=== PATIENT | female | born 1980 | race Caucasian/White ===

== ENCOUNTER 2018-12-22 15:53 | Emergency (ER) | payer OTHER, MEDICAID ==
[~2018-12-22] VITALS: Ht 157.5 cm; Wt 68.0 kg
[2018-12-22] MEDS ORDERED: KETOROLAC 30MG/ML VIAL IV STA (22:12)
[2018-12-22] MEDS ORDERED: ONDANSETRON HCL 4MG/2ML INJ IV STA (22:12)
[2018-12-22] MEDS ORDERED: DIAZEPAM 5 MG TABLET PO ONE (22:30)
[2018-12-22 22:38] LABS: CLARITY URINE CLEAR (CLEAR); COLOR URINE YELLOW (YELLOW); KETONES URINE NEGATIVE (NEGATIVE); LEUKOCYTE ESTERASE URINE TRACE (NEGATIVE); NITRITE URINE NEGATIVE (NEGATIVE); OCCULT BLOOD URINE NEGATIVE (NEGATIVE); PH URINE 5.5 (4.5-8.0); PROTEIN URINE NEGATIVE (NEGATIVE); SPECIFIC GRAVITY URINE 1.017 (1.005-1.030); UROBILINOGEN URINE 0.2 E.U./dL (0.2-1.0)
[2018-12-22 22:41] LABS: BASOPHILS % 0.7 % (0.0-2.0); EOSINOPHILS % 1.5 % (0.0-5.0); HEMATOCRIT. 40.2 % (36.0-48.0); HEMOGLOBIN. 13.4 g/dL (12.0-16.0); LYMPHOCYTES % 32.3 % (20.0-50.0); MEAN CORPUSCULAR HEMOGLOBIN 30.1 pg (28.0-32.0); MEAN CORPUSCULAR VOLUME 90.7 fL (81.0-99.0); MEAN PLATELET VOLUME 9.8 fl (7.4-10.4); NEUTROPHILS % 59.5 % (40.0-76.0); PLATELET 191 x1000/uL (130-400); RED BLOOD CELL COUNT 4.44 mill/uL (4.2-5.4); RED CELL DISTRIBUTION WIDTH 13.8 % (11.6-14.6)
[2018-12-22 22:45] LABS: CHLORIDE 107 mEq/L (98-107)
[2018-12-22] MEDS ORDERED: CEPHALEXIN 250MG CAPSULE PO SCH (23:00)
[2018-12-22] MEDS ORDERED: POTASSIUM CHLORIDE 20MEQ TABLET SR PO SCH (23:00)
[2018-12-22 23:36] VITALS: BP 113/53
== END 2018-12-22 22:55 | disposition home or self-care (01) ==
LOC: ER 15:53
DX: N39.0 Urinary tract infection, site not specified (principal); E87.6 Hypokalemia; M62.838 Other muscle spasm; Z98.890 Other specified postprocedural states
CPT/HCPCS: 36415; 80053; 81003; 81025; 83690; 85025; 96374; 96375; 99284; J1885; J2405; Z7610